=== PATIENT | female | born 1975 | race Caucasian/White ===

== ENCOUNTER 2018-08-25 05:53 | Inpatient (IN) | payer OTHER, BC ==
[2018-08-24 14:13] VITALS: Ht 124.5 cm; Wt 58.2 kg
[~2018-08-25] VITALS: Ht 124.5 cm; Wt 58.2 kg
[2018-08-25] VITALS (43 sets, daily range): BP systolic 75–132; BP diastolic 47–82; PULSE 56–86; RESP 13–24
[~2018-08-25 05:53] MED LIST: FERR240T9 PO; PRENAT PO
--- NOTE | 2018-08-25 07:09 | PREAC ---
Date/Time of Note Date/Time of Note DATE: 08/25/18 TIME: 07:07 Anesthesia Eval and Record Evaluation Time Pre-Procedure Interview DATE: 08/25/18 TIME: 07:07 Age 43 Sex female NPO: 8 hrs Preoperative diagnosis fibroids Planned procedure supracervical hysterectomy Past Medical History Past Medical History: None Surgery & Anesthesia Issues No known issue Meds Anticoagulation: No Beta Rome within 24 hr: No Reason Beta Rome not given: Pt. not on B-Rome Reported Medications Ferrous Gluconate (Iron) 1 Tab Tablet, 1 TAB PO DAILY 03/24/14 Multivit/Min/Fol Ac/Iron/Pren* ( S*) 1 Tab Tab, 1 TAB PO DAILY, TAB 03/24/14 Meds reviewed: Yes Allergies Coded Allergies: No Known Allergy (Unverified , 04/07/16) Allergies Reviewed: Yes Labs/Studies Labs Reviewed: Reviewed by anesthesiologist Blood Bank Test 08/24/18 14:13 Antibody Screen NEGATIVE Blood Type B POSITIVE test: Negative Studies: ECG, CXR Pre-procedure Exam Airway: Adequate mouth opening, Adequate thyromental dist Mallampati: Mallampati I Teeth: Normal Lung: Normal Heart: Normal ASA Physical Status ASA physical status: 2 Emergency: None Planned Anesthetic General/MAC: ETT Planned Pain Management Parenteral pain med Pre-operative Attestations Prior to commencing anesthesia and surgery, the patient was re-evaluated, there was verification of: *The patient's identity *The results of appropriate recent lab work and preoperative vital signs *The above evaluation not changing prior to induction *Anesthetic plan, risk benefits, alternative and complications discussed with patient/family; questions answered; patient/family understands, accepts and wishes to proceed. GORAN CORTES Aug 25, 2018 07:09
[2018-08-25] MEDS ORDERED: PROPOFOL 100 ML ONE (07:11)
[2018-08-25] MEDS ORDERED: MIDAZOLAM 1 MG/ML 2 ML INJ ONE (07:15)
--- NOTE | 2018-08-25 07:18 | PREOPHP ---
DATE OF ADMISSION: 08/25/2018 HISTORY OF PRESENT ILLNESS: This is a 44-year-old lady, 5, para 3, with 2 spontaneous aborti ons. Her last normal menstrual period was few days prior to admission. She was admitted for an expl oratory laparotomy, supracervical hysterectomy, possible JUSTYN and BSO. The patient is known to have a bout 20-week size fibroid. She bleeds heavy with her periods associated with blood clots. She also has lower abdominal pains and low back pains on and off for the last many months, then getting worse up to the time of admission. She had endometrial biopsy done in the office and the endometrial biops y showed proliferative endometrium, negative for hyperplasia. She never had any abnormal Pap smear b efore. She wanted to have supracervical hysterectomy only and, if no endometriosis, to leave her ova rohini. The procedures were explained to the patient and she understood everything totally. The risks , benefits and alternatives were discussed with her as well. PAST PERSONAL HISTORY: No history of diabetes, TB, asthma. ALLERGIES: NO ALLERGIES. SOCIAL HISTORY: Patient does not smoke. She does not drink. MEDICATIONS: She does not take any drugs except her iron. GYNECOLOGIC HISTORY: She had menarche at the age of 14, every 28 days interval, 3 to 4 days duration and moderate in amount. FAMILY HISTORY: Noncontributory. OBSTETRIC HISTORY: She is 5, para 3. She had 2 normal deliveries and 1 . She had 2 spontaneous abortions. REVIEW OF SYSTEMS: CARDIOVASCULAR: No chest pains. RESPIRATORY: No cough. GASTROINTESTINAL: No diarrhea, no vomiting. GENITOURINARY: No dysuria. PHYSICAL EXAMINATION: GENERAL: Reveals a conscious, coherent lady and in no acute distress. VITAL SIGNS: Her blood pressure 120/80, pulse rate 80 per minute, respirations 16 per minute. BREASTS, HEART AND LUNGS: Within normal limits. ABDOMEN: Soft. Uterus about 20 weeks' size. PELVIC: Revealed the cervix to be firm, uterus about 20 weeks' size. Adnexa could not be properly d elineated. RECTAL: Confirmed the pelvic findings. EXTREMITIES: No pedal edema. ADMITTING DIAGNOSIS: Symptomatic fibroid uterus. The patient does not like to have any more children. She wants to have sterilization, so she wanted to have this removal of the uterus only. The cervix is to be left behind. She had all normal Pap sm ear before and she understand that she needs to go for a Pap smear as needed. Dictated By: BRANDY IVY/MICHELLE Conf#: [id number] DID#: [id number]
[2018-08-25] MEDS ORDERED: FENTAnyl 50 MCG/ML VIAL ONE (07:20)
[2018-08-25] MEDS ORDERED: CEFAZOLIN 1 GM INJ ONE (07:25)
[2018-08-25] MEDS ORDERED: ROCURONIUM 50 MG INJ ONE (07:26)
[2018-08-25] MEDS ORDERED: LIDOCAINE 2% (SDV) 5 ML INJ ONE (07:26)
[2018-08-25] MEDS ORDERED: ONDANSETRON 4 MG INJ ONE (07:26)
[2018-08-25] MEDS ORDERED: DEXAMETHASONE 4 MG/ML 5 ML INJ ONE (07:26)
[2018-08-25] MEDS ORDERED: morphine 10 MG INJ ONE (07:38)
[2018-08-25] MEDS ORDERED: hydrALAzine 20 MG INJ IV PRN (08:00)
[2018-08-25] MEDS ORDERED: LABETALOL HCL 20MG INJ IV PRN (08:00)
[2018-08-25] MEDS ORDERED: EPHEDrine SULFATE 50 MG/5 ML SYG IV PRN (08:00)
[2018-08-25] MEDS ORDERED: HYDROmorphONE 1 MG/5 ML IV SYRINGE IV PRN ×3 (08:00)
[2018-08-25] MEDS ORDERED: METOCLOPRAMIDE 10 MG INJ IV PRN (08:00)
[2018-08-25] MEDS ORDERED: MEPERIDINE 25 MG INJ IV PRN (08:00)
[2018-08-25] MEDS ORDERED: OXYCODONE/ACETAMINOPHEN (5/325) TAB PO PRN ×2 (08:00)
[2018-08-25] MEDS ORDERED: KETOROLAC 30 MG INJ IV PRN ×2 (08:00→08:30)
[2018-08-25] MEDS ORDERED: FENTAnyl 50 MCG/ML VIAL IV PRN ×3 (08:00)
[2018-08-25] MEDS ORDERED: ALBUTEROL 0.083% (NEB) 2.5 MG/3 ML AMP HHN PRN (08:00)
[2018-08-25] MEDS ORDERED: MIDAZOLAM 1 MG/ML 2 ML INJ IV PRN (08:00)
[2018-08-25] MEDS ORDERED: ONDANSETRON 4 MG INJ IV PRN ×3 (08:00→09:30)
[2018-08-25] MEDS ORDERED: DIPHENHYDRAMINE 50 MG INJ IV PRN ×2 (08:00→08:30)
[2018-08-25] MEDS ORDERED: NALOXONE (0.4 MG/ML) INJ IV PRN (08:30)
[2018-08-25] MEDS ORDERED: ZOLPIDEM 5 MG TAB PO PRN (08:30)
[2018-08-25] MEDS ORDERED: HYDROmorphONE 0.2 MG/ML PCA IV SCH (08:30)
[2018-08-25] MEDS ORDERED: NEOSTIGMINE 10 MG INJ ONE (08:45)
[2018-08-25] MEDS ORDERED: GLYCOPYRROLATE 0.4 MG INJ ONE (08:45)
--- NOTE | 2018-08-25 09:06 | SIPON ---
Date/Time of Note Date/Time of Note DATE: 08/25/18 TIME: 09:03 Operative Report Preoperative Diagnosis SYMPTOMATIC FIBROID MENORRHAGIA CHRONIC PELVIC PAIN PERINEAL RELAXATION Postoperative Diagnosis SYMPTOMATIC FIBROID MENORRHAGIA CHRONIC PELVIC PAIN PERINEAL RELAXATION Operation/Procedure Performed SUPRACERVICAL HYSTERECTOMY LEFT SALPINGO OOPHORECTOMY LYSIS OF ADHESION VAGINAL VAULT SUSPENSION Surgeon see signature line facility assistant DR ADILENE LANDON Anesthesia: general Estimated blood loss: 250 - 300 ml's Transfusion Required none Specimen PARTS OR CERVIX BODY OF UTERUS LEFT TUBE AND OVARIES Grafts/Implants none Complications none BRANDY SUN MD Aug 25, 2018 09:06
--- NOTE | 2018-08-25 09:10 | PAC ---
Date/Time of Note Date/Time of Note DATE: 08/25/18 TIME: 09:09 Post-Anesthesia Notes Post-Anesthesia Note Last documented vital signs Vital Signs Date Temp Pulse Resp B/P (MAP) Pulse Ox O2 O2 Flow FiO2 Time Delivery Rate 08/25/18 99.0 85 14 132/82 98 Room Air 0910 (99) Activity: WNL Respiratory function: WNL Cardiovascular function: WNL Mental status: Baseline Pain reasonably controlled: Yes Hydration appropriate: Yes Nausea/Vomiting absent: Yes GORAN CORTES Aug 25, 2018 09:10
[2018-08-25] MEDS: LACTATED RINGER'S 1,000 ML IV SCH ×2 (11:13→17:30)
--- NOTE | 2018-08-25 18:08 | OPR ---
DATE OF OPERATION: 08/25/2018 PREOPERATIVE DIAGNOSES: 1. Symptomatic fibroid uterus. 2. Menorrhagia. 3. Chronic pelvic pain. 4. Perineal relaxation. POSTOPERATIVE DIAGNOSES: 1. Symptomatic fibroid uterus. 2. Menorrhagia. 3. Chronic pelvic pain. 4. Perineal relaxation. 5. Severe pelvic and abdominal adhesions. SURGEON: Brandy Pizano MD DUAL HOSE CEMENTER: Rudi Mason MD ANESTHESIA: General. OPERATION PERFORMED: Exploratory laparotomy, supracervical hysterectomy, left salpingo-oophorectomy, lysis of severe pelvic and abdominal adhesions and vaginal vault suspension. OPERATIVE TECHNIQUE: Under general anesthesia, the patient was prepped and draped in the usual fashi on for abdominal surgery. After checking for the effect of the anesthesia, the previous Pfannenstiel scar was excised, 14 cm skin incision was performed. The incision was carried from the skin up to t he fascia. Upon opening the skin up to the fascia, small blood vessels were noted to be oozing and t hese were all cauterized. Fascia was opened transversely followed by splitting the muscles vertical and the peritoneum vertically. Upon opening the abdominal cavity, the uterus was noted to be about 2 2 weeks' size. The uterus was pulled out from the pelvic cavity. Multiple fibroids were noted. Upo n opening the abdominal cavity, omental adhesions were noted to the anterior parietal peritoneum. Al l these adhesions were lysed by sharp and blunt dissection. The lower uterine segment was noted to b e deeply attached to the bladder. All these adhesions were lysed by sharp and blunt dissection. As mentioned, the uterus was pulled out from the pelvic cavity to the left tube and the left ovary were deeply attached to the left cornual portion of the uterus. The right tube and the right ovary were h ealthy looking, but there were some adhesions and all these adhesions were freed. Two 8-inch Kochers were placed at each paratubal and paraovarian ligament on both sides. The left round ligament was g rasped with 2 Kochers and cut. A stick tie with 0 Vicryl was used and tagged. Then, the left broad ligament was skeletonized for the development of the bladder flap. As mentioned, the left tube and l eft ovary were noted to be deeply attached to the cornual portion of the uterus, so it was decided th at the left tube and ovary are to be removed. The left infundibular ligament was grasped with 2 Hean ey clamps and pulled back with a straight Love and cut. At first, a free tie with 0 Vicryl was use d and tagged followed by Jose suture. Bleeders were checked and there was no bleeding noted. Same thing was done on the right side. Right round ligament was grasped with 2 Kochers and cut. A stick tie with 0 Vicryl was used and tied. The right broad ligament was skeletonized for the development of the bladder flap. Then, the right utero-ovarian and right uterotubal ligament was grasped with 2 Jose clamps and pulled back with a straight Love and cut. At first, a free tie with 0 Vicryl was used followed by Jose suture. The right tube and the right ovary were left behind. Then, the bro ad ligament on both sides was skeletonized for the development of the bladder flap. Then, the bladde r was from the cervix by sharp and blunt dissection. Then, the left uterine vessels were b rought to view. The left uterine vessels were grasped with 2 Jose clamps and pulled back with a st raight Love and cut. A stick tie with 0 Vicryl was used on each clamp. Same thing was done on the right side. Once again, the bladder was from the cervix by sharp and blunt dissection. T wo more Kochers were placed at each paracervical tissue on both sides and on each Love the tissue w as cut and a stick tie with 0 Vicryl was used. The body of the uterus was excised. The remaining ce rvix was grasped with 2 single tooth tenaculum. Once again, the bladder was from the cervi x by sharp and blunt dissection. About 7 Kochers were placed at this paracervical tissue on the left and right side and on each Love, the tissue was cut. A stick tie with 0 Vicryl was used. Bleeder s were checked and there was no bleeding noted. Then, 2/3 of the cervix was excised. The remaining cervix was grasped with a single tooth tenaculum. The mucosa of the remaining cervix was cauterized. The remaining cervix was sutured with 0 Vicryl continuous suture was used. Three layers were used to close the cervix. The right angle of the cervix was sutured with right paracervical tissue and in turn after checking for any bleeders in which there were none tied with the right round ligament for vaginal vault suspension. Same thing was done on the left side. Bleeders were checked and there wa s no bleeding noted. Irrigation was done to check for any bleeders and there was no bleeding noted. Then, after checking for any bleeders in which there were none and after checking all the stumps in which there were none, the raw area was covered with Surgicel. Then, the self-retaining retractor wa s put in after the body of the uterus was excised. After correct sponge count, needle count and inst rument count, the abdomen was closed in the usual fashion using 0 Vicryl for the peritoneum, 0 Vicryl for the muscles. For the fascia, 0 Vicryl continuous stitch was used followed by few [id number] t suture. For the subcutaneous tissue, it was closed with 3-0 Vicryl and the skin was closed with 3- 0 Vicryl, subcuticular suture was used. The patient tolerated the procedure well. Estimated blood l oss was about 300 mL. Vital signs were stable during and after the procedure. Dictated By: BRANDY IVY/MICHELLE Conf#: [id number] DID#: [id number]
[2018-08-26] MEDS: LACTATED RINGER'S 1,000 ML IV SCH ×4 (00:43→17:30)
[2018-08-26 01:00] VITALS: BP 99/50; PULSE 88; RESP 18
[2018-08-26 05:00] VITALS: BP 105/60; PULSE 77; RESP 20
[2018-08-26] MEDS ORDERED: MAGNESIUM HYDROXIDE 30ML CUP PO ONE ×3 (06:00→17:00)
[2018-08-26] MEDS ORDERED: BISACODYL 10 MG SUPP PR ONE ×3 (06:00→17:00)
[2018-08-26 08:31] VITALS: BP 109/56; PULSE 69; RESP 18
[2018-08-26] MEDS: HYDROCODONE/APAP (5/325) TAB PO PRN ×3 (10:03→20:05)
[2018-08-26 14:58] VITALS: BP 114/53; PULSE 66; RESP 18
[2018-08-26 15:27] VITALS: BP 100/70; PULSE 63; RESP 17
[2018-08-26 20:00] VITALS: BP 102/64; PULSE 62; RESP 18
--- NOTE | 2018-08-26 21:57 | PN ---
DATE: 08/26/2018 TIME: 8:30 p.m. SUBJECTIVE: The patient feels good, complaining of incisional pain. She had 3 bowel movements. OBJECTIVE: VITAL SIGNS: She is afebrile. Vital signs stable. LUNGS: Clear. HEART: Normal sinus rhythm. ABDOMEN: Soft. Bowel sounds good. WOUND: Dry and clean. No vaginal bleeding noted. EXTREMITIES: No calf tenderness. ASSESSMENT: Postop day #1. PLAN: Advance diet as tolerated. CBC tomorrow morning. The WBC today is 15,000, and a hemoglobin a nd hematocrit normal. A repeat CBC and CMP tomorrow. The patient may be discharged tomorrow. Dictated By: BRANDY IVY/MICHELLE Conf#: [id number] DID#: [id number]
[2018-08-27] MEDS: LACTATED RINGER'S 1,000 ML IV SCH (01:30)
[2018-08-27 02:25] VITALS: BP 92/53; PULSE 63
[2018-08-27] MEDS: HYDROCODONE/APAP (5/325) TAB PO PRN ×4 (03:01→17:49)
[2018-08-27 07:56] VITALS: BP 108/57; PULSE 65; RESP 16
[2018-08-27 13:58] VITALS: BP 102/61; PULSE 68; RESP 16
[2018-08-27] MEDS ORDERED: MAGNESIUM HYDROXIDE 30ML CUP PO ONE (15:00)
[2018-08-27] MEDS ORDERED: BISACODYL 10 MG SUPP PR ONE (15:00)
[2018-08-27 19:30] VITALS: BP 92/60; PULSE 59; RESP 18
[2018-08-28] MEDS ORDERED: IBUPROFEN 800 MG TAB PO PRN (14:00)
--- NOTE | 2018-08-31 04:17 | PN ---
DATE: 08/27/2018 SUBJECTIVE: The patient feels good. Less incisional pain. Good bowel movement. Good urine output. Tolerating food. OBJECTIVE: VITAL SIGNS: She is afebrile. Vital signs stable. ABDOMEN: Soft. Bowel sounds good. Wound dry and clean. EXTREMITIES: No calf tenderness. ASSESSMENT: Postop day #2. PLAN: Home today. Counseled and instructed. Prescription given for pain. Return to clinic in 2 we eks. Dictated By: BRANDY IVY/MICHELLE Conf#: [id number] DID#: [id number]
--- NOTE | 2018-09-05 04:57 | DS ---
DATE OF ADMISSION: 08/25/2018 DATE OF DISCHARGE: 08/27/2018 This is a 43-year-old lady, 5, para 3 with 2 spontaneous abortions. She was admitted for exp loratory laparotomy, supracervical hysterectomy, possible JUSTYN and BSO. HISTORY OF PRESENT ILLNESS: See dictated history and physical. PHYSICAL EXAMINATION: See dictated history and physical. ADMITTING DIAGNOSIS: Symptomatic fibroid uterus. HOSPITAL COURSE: The patient underwent an exploratory laparotomy, supracervical hysterectomy, left s alpingo-oophorectomy, lysis of severe pelvic and abdominal adhesions and vaginal vault suspension. S he tolerated the procedure well. She did have good postoperative course. The diet was advanced from liquid to general diet. She had good bowel movement postoperatively. She has less pain on the seco nd postoperative day. She was discharged home in good and stable condition on general diet and activ ity was restricted. She was counseled. She was instructed. She was given prescription for pain. S he was told to continue to take her iron at home. The hematocrit on discharge was 30.6, hemoglobin 1 0.2 and the pathology report showed leiomyomas with focal ____ degeneration and serous cyst adenofibr delfina on the left fallopian tube. FINAL DIAGNOSES: 1. Symptomatic fibroid uterus. 2. Anemia. 3. Severe pelvic and abdominal adhesions. 4. Perineal relaxation. 5. 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 Dictated By: BRANDY IVY/NTS Conf#: [id number] DID#: [id number]
== END 2018-08-27 19:55 | disposition home or self-care (01) | DRG 743 ==
LOC: REC 05:53 → MS3 13:35 → 5EC 08-26 15:20
PROVIDERS: ADMIT Obstetrics & Gynecology; ATTEND Obstetrics & Gynecology
PROC: 0UT10ZZ Resection of Left Ovary, Open Approach (ICD-10-PCS; 2018-08-25)
PROC: 0UT60ZZ Resection of Left Fallopian Tube, Open Approach (ICD-10-PCS; 2018-08-25)
PROC: 0UBC0ZZ Excision of Cervix, Open Approach (ICD-10-PCS; 2018-08-25)
PROC: 0TNB0ZZ Release Bladder, Open Approach (ICD-10-PCS; 2018-08-25)
PROC: 0USG0ZZ Reposition Vagina, Open Approach (ICD-10-PCS; 2018-08-25)
PROC: 0UT90ZL Resection of Uterus, Supracervical, Open Approach (ICD-10-PCS; principal; 2018-08-25 07:30)
DX: D25.9 Leiomyoma of uterus, unspecified (principal); N92.0 Excessive and frequent menstruation with regular cycle; N81.89 Other female genital prolapse; N73.6 Female pelvic peritoneal adhesions (postinfective); D64.9 Anemia, unspecified; D28.2 Benign neoplasm of uterine tubes and ligaments
CPT/HCPCS: 80053; 84702; 85025; 86850; 86900; 86901; 88305; J0690; J1100; J1170; J2175; J2250; J2270; J2405; J2710; J3010; J7120